=== PATIENT | female | born 1970 | race Hispanic/Latino ===

== ENCOUNTER 2017-06-28 08:25 | Day surgery (SDC) | payer MEDICAID ==
[2015-11-20 11:03] VITALS: BMI 26.4
[2017-06-28] MEDS ORDERED: Lactated Ringer's 500 ML IV ONE (09:02)
[2017-06-28] MEDS ORDERED: Propofol 10 mg/ml Inj (20 ML) ONE (10:13)
[2017-06-28 10:44] VITALS: RESP 19; TEMP 97; O2SAT 96
[2017-06-28 10:59] VITALS: BP 111/58; PULSE 86
== END 2017-06-28 11:30 | disposition home or self-care (01) ==
LOC: H.ENDO 08:25
PROVIDERS: ATTEND Internal Medicine Gastroenterology
DX: Z12.11 Encounter for screening for malignant neoplasm of colon (principal); I48.91 Unspecified atrial fibrillation; J45.909 Unspecified asthma, uncomplicated; K64.8 Other hemorrhoids
CPT/HCPCS: 45378; 88305; J2704; J7120